=== PATIENT | female | born 1955 | race Two or more races ===

== ENCOUNTER 2018-02-15 13:30 | Outpatient (CLI) | payer OTHER | END 2018-02-15 14:19 | disposition home or self-care (01) | LOC: RAD 13:30 | DX: M99.01 Segmental and somatic dysfunction of cervical region (principal); M99.02 Segmental and somatic dysfunction of thoracic region; M99.03 Segmental and somatic dysfunction of lumbar region; M99.05 Segmental and somatic dysfunction of pelvic region; M25.512 Pain in left shoulder ==

== ENCOUNTER 2018-10-03 14:25 | Outpatient (CLI) | payer OTHER ==
[~2018-10-03 14:25] MED LIST: ASA81 MG PO
== END 2018-10-03 14:28 | disposition home or self-care (01) ==
LOC: MAMO-SONO 14:25
DX: N60.11 Diffuse cystic mastopathy of right breast (principal); N60.12 Diffuse cystic mastopathy of left breast; Z12.31 Encounter for screening mammogram for malignant neoplasm of breast

== ENCOUNTER 2018-10-06 12:17 | Outpatient (CLI) | payer OTHER | END 2018-10-06 12:19 | disposition home or self-care (01) | LOC: SONOGRAMA 12:17 | DX: D05.11 Intraductal carcinoma in situ of right breast (principal); N60.11 Diffuse cystic mastopathy of right breast; N60.12 Diffuse cystic mastopathy of left breast ==

== ENCOUNTER → 2018-12-01 | Outpatient (CLI) | payer OTHER | END | disposition home or self-care (01) | LOC: SONOGRAMA 10:16 | DX: C50.511 Malignant neoplasm of lower-outer quadrant of right female breast (principal); N60.12 Diffuse cystic mastopathy of left breast; N60.11 Diffuse cystic mastopathy of right breast; C77.3 Secondary and unspecified malignant neoplasm of axilla and upper limb lymph nodes ==

== ENCOUNTER 2019-05-03 09:28 | Outpatient (CLI) | payer OTHER | END 2019-05-03 09:33 | disposition home or self-care (01) | LOC: LAB 09:28 | DX: D64.89 Other specified anemias (principal); D68.8 Other specified coagulation defects; I10 Essential (primary) hypertension; N39.0 Urinary tract infection, site not specified; E11.00 Type 2 diabetes mellitus with hyperosmolarity without nonketotic hyperglycemic-hyperosmolar coma (NKHHC); E04.1 Nontoxic single thyroid nodule; E78.2 Mixed hyperlipidemia ==

== ENCOUNTER → 2019-05-21 11:51 | Outpatient (CLI) | payer OTHER | END | disposition home or self-care (01) | LOC: LAB 11:51 | DX: E11.9 Type 2 diabetes mellitus without complications (principal) ==

== ENCOUNTER 2019-05-24 09:22 | Outpatient (CLI) | payer OTHER | END 2019-05-24 14:00 | disposition home or self-care (01) | LOC: LAB 09:22 | DX: E11.9 Type 2 diabetes mellitus without complications (principal) ==

== ENCOUNTER 2019-07-27 12:55 | Inpatient (IN) | payer OTHER ==
[~2019-07-27] VITALS: Ht 170.2 cm; Wt 68.0 kg
[~2019-07-27 12:55] MED LIST changes: +LIPITOR20 MG PO; +LOSARTAN POTASS50 MG PO; +METFORMIN HCL1000 M2 PO
[2019-07-30] MEDS ORDERED: AMOX-CLAV 875-1 EACH PO (09:35)
== END 2019-07-31 17:22 | disposition home or self-care (01) | DRG 580 ==
LOC: SURH 07-30 05:50 → O/R 07-30 05:50 → SURH 07-30 18:00
PROVIDERS: Plastic Surgery; ADMIT Surgery
PROC: 0HRT076 Replacement of Right Breast using Transverse Rectus Abdominis Myocutaneous Flap, Open Approach (ICD-10-PCS; 2019-07-30)
PROC: 07B50ZZ Excision of Right Axillary Lymphatic, Open Approach (ICD-10-PCS; principal; 2019-07-30 10:30)
PROC: 0HTT0ZZ Resection of Right Breast, Open Approach (ICD-10-PCS; 2019-07-30 10:30)
DX: D05.12 Intraductal carcinoma in situ of left breast (principal); C77.3 Secondary and unspecified malignant neoplasm of axilla and upper limb lymph nodes; Z90.11 Acquired absence of right breast and nipple

== ENCOUNTER 2019-11-13 12:51 | Outpatient (CLI) | payer OTHER ==
[~2019-11-13 12:51] MED LIST changes: +AMOX-CLAV 875-1 EACH PO
== END 2019-11-13 13:13 | disposition home or self-care (01) ==
LOC: SONOGRAMA 12:51
PROVIDERS: ATTEND Plastic Surgery
DX: C50.911 Malignant neoplasm of unspecified site of right female breast (principal)

== ENCOUNTER 2022-07-06 18:01 | Emergency (ER) | payer OTHER ==
[~2022-07-06] VITALS: Ht 170.2 cm; Wt 52.2 kg
[2022-07-06] MEDS ORDERED: AQUAPHOR HEALIN50 GM TOP (21:38)
== END 2022-07-06 21:52 | disposition home or self-care (01) ==
LOC: ER 18:01
DX: S80.862A Insect bite (nonvenomous), left lower leg, initial encounter (principal); S80.861A Insect bite (nonvenomous), right lower leg, initial encounter; Z88.2 Allergy status to sulfonamides; Z88.8 Allergy status to other drugs, medicaments and biological substances; E11.9 Type 2 diabetes mellitus without complications; I10 Essential (primary) hypertension